=== PATIENT | male | born 1985 | race Caucasian/White ===

== ENCOUNTER 2020-11-04 13:07 | Emergency (ER) | payer MEDICAID ==
[~2020-11-04] VITALS: Ht 175.3 cm; Wt 72.7 kg
[2020-11-04 13:38] VITALS: BP 123/82
[2020-11-04] MEDS ORDERED: AMOX-422 PO (16:14)
== END 2020-11-04 16:20 | disposition home or self-care (01) ==
LOC: ER 13:08
DX: M25.462 Effusion, left knee (principal)
CPT/HCPCS: 29505; 73564; 99283